=== PATIENT | male | born 1945 | race Caucasian/White ===

== ENCOUNTER → 2023-10-08 07:50 | Outpatient (REF) | payer MEDICARE, OTHER, SELFPAY | LOC: RAD 07:50 | PROVIDERS: ATTENDING PHYSICIAN Specialist; FAMILY PHYSICIAN Family Medicine | DX: M54.16 Radiculopathy, lumbar region (principal) | CPT/HCPCS: 72131 ==

== ENCOUNTER → 2024-01-16 13:59 | Outpatient (REF) | payer MEDICARE, OTHER, SELFPAY ==
[2024-01-16 15:04] LABS: % Basophils 0.5 % (0-2); % Eosinophils 1.9 % (0-6); % Immature Granulocytes 0.4 % (0-0.5); % Monocytes 8.4 % (1.7-9.3); % Neutrophils 58.8 % (42.2-75.2); Absolute Eosinophils 0.1 10^3/uL (0-0.7); Absolute Lymphocytes 2.2 10^3/uL (1.2-3.4); Absolute Monocytes 0.6 10^3/uL (0.1-0.6); Absolute Neutrophils 4.3 10^3/uL (1.4-6.5); Hematocrit 42.2 % (39.0-52.0); Hemoglobin 14.6 g/dL (13.0-18.0); Mean Corp Hgb Conc. 34.6 g/dL (33.0-37.0); Mean Corpuscular Hgb 32.5 pg (27.0-31.0); Mean Platelet Volume 9.9 fL (7.4-10.4); Nucleated Red Blood Cells % 0 % (-); Platelet Count 205 10^3/uL (130-400); Red Blood Cell Count 4.49 10^6/uL (4.70-6.10); Red Cell Dist. Width 12.6 % (11.5-14.5); White Blood Cell Count 7.3 10^3/uL (4.8-10.8)
[2024-01-16 15:30] LABS: ALT (SGPT) 18 U/L (0-50); AST (SGOT) 24 U/L (17-59); Alkaline Phosphatase 111 U/L (38-126); Blood Urea Nitrogen 13 mg/dl (9-20); Calcium 9.6 mg/dl (8.4-10.2); Carbon Dioxide 24 mmol/L (22-30); Chloride 105 mmol/L (98-107); Glucose 139 mg/dl (70-99); Potassium 4.1 mmol/L (3.5-5.1); Sodium 138 mmol/L (135-145); Total Bilirubin 0.7 mg/dl (0.2-1.3); Total Protein 6.1 g/dl (6.3-8.2); eGFR > 60.00
== END ==
LOC: REG 13:59
PROVIDERS: ATTENDING PHYSICIAN Family Medicine
DX: R17 Unspecified jaundice (principal)
CPT/HCPCS: 36415; 80053; 85025

== ENCOUNTER → 2024-02-14 10:09 | Outpatient (REF) | payer MEDICARE, OTHER, SELFPAY ==
[2024-02-14 11:59] LABS: ALT (SGPT) 26 U/L (0-50); AST (SGOT) 27 U/L (17-59); Albumin 4.6 g/dl (3.5-5.0); Alkaline Phosphatase 94 U/L (38-126); Blood Urea Nitrogen 16 mg/dl (9-20); Calcium 9.9 mg/dl (8.4-10.2); Carbon Dioxide 30 mmol/L (22-30); Chloride 104 mmol/L (98-107); Glucose 96 mg/dl (70-99); HDL Cholesterol 67 mg/dl; LDL Cholesterol, Calculated 79 mg/dl; Potassium 4.9 mmol/L (3.5-5.1); Sodium 140 mmol/L (135-145); Total Bilirubin 1.2 mg/dl (0.2-1.3); Total Cholesterol 174 mg/dl (50-199); Total Protein 6.9 g/dl (6.3-8.2); Triglyceride 142 mg/dl (10-149); Very Low Density Lipoprotein 28 mg/dl (0-30); eGFR > 60.00
== END ==
LOC: REG 10:09
PROVIDERS: ATTENDING PHYSICIAN Urology; FAMILY PHYSICIAN Family Medicine; REFERRING PHYSICIAN Internal Medicine Interventional Cardiology
DX: N40.0 Benign prostatic hyperplasia without lower urinary tract symptoms (principal); R97.20 Elevated prostate specific antigen [PSA]; R35.1 Nocturia; E78.2 Mixed hyperlipidemia; E78.5 Hyperlipidemia, unspecified
CPT/HCPCS: 36415; 80053; 80061; 82565; 84153

== ENCOUNTER → 2024-04-17 11:28 | Outpatient (REF) | payer MEDICARE, OTHER, SELFPAY ==
[2024-04-17 13:38] LABS: Blood Urea Nitrogen 14 mg/dl (9-20); Calcium 9.7 mg/dl (8.4-10.2); Carbon Dioxide 28 mmol/L (22-30); Chloride 104 mmol/L (98-107); Glucose 96 mg/dl (70-99); Potassium 4.8 mmol/L (3.5-5.1); Sodium 142 mmol/L (135-145); eGFR > 60.00
== END ==
LOC: REG 11:28
PROVIDERS: ATTENDING PHYSICIAN Urology; FAMILY PHYSICIAN Student in an Organized Health Care Education/Training Program
DX: N40.0 Benign prostatic hyperplasia without lower urinary tract symptoms (principal); R97.20 Elevated prostate specific antigen [PSA]; R35.1 Nocturia
CPT/HCPCS: 36415; 80048; 84153

== ENCOUNTER → 2024-04-18 09:12 | Outpatient (REF) | payer MEDICARE, OTHER, SELFPAY ==
[2024-04-18 12:20] LABS: ALT (SGPT) 21 U/L (0-50); AST (SGOT) 26 U/L (17-59); HDL Cholesterol 53 mg/dl; LDL Cholesterol, Calculated 52 mg/dl; Total Cholesterol 153 mg/dl (50-199); Triglyceride 243 mg/dl (10-149); Very Low Density Lipoprotein 48 mg/dl (0-30)
== END ==
LOC: REG 09:12
PROVIDERS: ATTENDING PHYSICIAN Internal Medicine Interventional Cardiology; FAMILY PHYSICIAN Family Medicine
DX: I25.10 Atherosclerotic heart disease of native coronary artery without angina pectoris (principal); I10 Essential (primary) hypertension; E78.00 Pure hypercholesterolemia, unspecified
CPT/HCPCS: 36415; 80061; 84450; 84460

== ENCOUNTER 2024-04-30 10:24 | Emergency (ER) | payer MEDICARE, OTHER, SELFPAY ==
[2024-04-30 10:30] VITALS: BP 140/81
--- NOTE | 2024-04-30 10:49 | ED.GENMED ---
History of Present Illness
General
Chief Complaint: Back Pain
Source: patient
Exam Limitations: none
Time Seen by Provider: 04/30/24 10:35
Nursing documentation reviewed up to this point in time: agreed with
History of Present Illness
History of Present Illness:
78-year-old male with past medical history of CAD hypertension chronic back issues presenting to the emergency department today with concerns of back pain that been ongoing he had contact his pain management doctor who was on vacation. He
previously had a back injection 1 month ago that had some improvement but is since worn off. He also has a spinal stimulator. He has been taking Tylenol at home without relief.
Past History
Past History
ED Past Medical History: None, CAD, HTN and Other (coronary artery disease, hyperlipidemia, prostatitis, status post appendectomy)
ED Past Surgical History: Appendectomy, Orthopedic and Other (Prostatic biopsy)
Social History
Tobacco: Non-smoker
Personal:
Living: with family
Employment: Retired
Family History
Family History: Diabetes and Hypertension
Review of Systems
Review of Systems
Allergies reviewed?: Yes
All Other Systems: ROS reviewed and negative except as documented in HPI and ROS
Phy Exam
Physical Exam
Physical Exam:
GENERAL: Alert , in no apparent distress
EYE: pupils equal and reactive
NECK: Supple, no significant adenopathy.
ENT: o/p clr, mmm.
CARDIAC: Regular rate and rhythm .
LUNGS: Clear breath sounds bilaterally, no acute respiratory distress, no wheezes/rales/rhonchi
ABDOMEN: Soft, without focal tenderness, no r/g, no cvat
NEUROLOGICAL: Alert and oriented, no focal neuro deficits
SKIN: Warm and dry, skin intact.
MUSCULOSKELETAL: No edema, well perfused.
PSYCH: Normal and appropriate interaction.
Course
Orders/Labs/Results
Orders:
Orders
04/30/24 10:49
Dexamethasone [Decadron] 10 mg PO NOW STA
Diazepam [Valium] 2 mg PO NOW STA
Vital Signs
Initial and Last Documented VS:
Initial Vital Signs
Temp Pulse Resp BP Pulse Ox
98.0 F 52 16 140/81 98
04/30/24 10:30 04/30/24 10:30 04/30/24 10:30 04/30/24 10:30 04/30/24 10:30
Last Documented Vital Signs
Temp Pulse Resp BP Pulse Ox
98.0 F 52 16 140/81 98
04/30/24 10:30 04/30/24 10:30 04/30/24 10:30 04/30/24 10:30 04/30/24 10:30
MDM/Problems Addressed
MDM/Problems Addressed:
78-year-old male presenting to the emergency department with bilateral low back pain no fevers no numbness or weakness no change in bowel or bladder function. No neurologic symptoms. Able to ambulate on exam normal neurologic evaluation on
examination. No saddle anesthesia. She has be consistent with his mechanical back pain. Plan for treatment with steroid as well as muscle relaxer. Patient does claim is very stable in his feet the risk of taking muscle laxer was discussed
thoroughly with the patient who demonstrated understanding and agreement with a small dose trial. Patient was reassessed very stable on his feet well-appearing claims he feels much better after the doses of medication here stable for discharge
return precautions were given.
*Critical Care Note
Total Time (30-74mins, 75-104mins- exclusive of procedures): Not Applicable
ED Attending Note
-
Portions of this chart may have been created with voice recognition software.� Occasional wrong word or��sound alike� substitutions may have occurred due to the inherent limitations of voice recognition software.
Discharge Plan
Departure
Patient Disposition: Home (Routine Discharge)
Date of Disposition: 04/30/24
Time of Disposition: 11:43
Patient with high blood pressure during this ER visit?: No
Condition: Good
Covid-19: Not Applicable
Discharge Problem:
Back pain
Instructions: Low Back Pain (DC)
Prescriptions:
New
prednisone 50 mg tablet
50 mg PO DAILY 3 Days Qty: 3 0RF
diazepam [Valium] 2 mg tablet
2 mg PO BID PRN (Reason: muscle spasm) Qty: 7 0RF
No Action
atorvastatin 40 MG tablet
40 mg PO QPM
aspirin 81 mg Tablet,Delayed Release (Dr/Ec)
81 mg PO QPM
tamsulosin 0.4 mg Capsule
0.4 mg PO HS Qty: 30 1RF
losartan 25 mg Tablet
25 mg PO DAILY Qty: 30 1RF
acetaminophen 325 mg Tablet
650 mg PO Q4HPRN PRN (Reason: mild pain,headache,temp >101F ) Qty: 0 0RF
clopidogrel 75 mg Tablet
75 mg PO DAILY Qty: 30 2RF
metoprolol tartrate 50 mg Tablet
75 mg PO BID Qty: 60 1RF
oxycodone 5 mg Tablet
5 mg PO Q6HPRN PRN (Reason: moderate to severe pain) Qty: 15 0RF
amiodarone [Pacerone] 200 mg tablet
200 mg PO BID Qty: 60 1RF
furosemide [Lasix] 20 mg tablet
20 mg PO DAILY Qty: 5 0RF
potassium chloride [potassium chloride] 10 mEq tablet,ER particles/crystals
10 meq PO DAILY Qty: 5 0RF
trazodone 50 mg tablet
50 mg PO HS Qty: 30 0RF
pantoprazole [Protonix] 40 mg tablet,delayed release (DR/EC)
40 mg PO DAILY Qty: 30 0RF
Referrals:
Samantha Saravia CRNP [Family Provider] -
Activity Restrictions/Additional Instructions:
You came to the emergency department today with concerns of back discomfort. Here you were given medications seem to improve symptoms. Please follow closely with your back doctor. Return to the emergency department for any worsening, new or
concerning symptoms.
Interventions
Interventions:
*Risk Screen - Suicide Last Done: 04/30/24 10:32
*Neglect/Abuse Screening Last Done: 04/30/24 10:32
Discharge Date and Time
Print Language: [place]
[2024-04-30] MEDS: VALIUM 2 MG PO (10:58)
[2024-04-30] MEDS: DECADRON 10 MG PO (10:58)
== END 2024-04-30 11:54 | disposition home or self-care (01) ==
LOC: EMR 10:24
PROVIDERS: EMERGENCY PHYSICIAN Emergency Medicine; FAMILY PHYSICIAN Nurse Practitioner Family
DX: M54.50 Low back pain, unspecified (principal); I25.10 Atherosclerotic heart disease of native coronary artery without angina pectoris; I10 Essential (primary) hypertension
CPT/HCPCS: 99283

== ENCOUNTER → 2024-09-07 12:21 | Outpatient (REF) | payer MEDICARE, OTHER, SELFPAY ==
[2024-09-07 13:55] LABS: Blood Urea Nitrogen 16 mg/dl (9-20); Calcium 9.5 mg/dl (8.4-10.2); Carbon Dioxide 29 mmol/L (22-30); Chloride 103 mmol/L (98-107); Glucose 89 mg/dl (70-99); Potassium 4.6 mmol/L (3.5-5.1); Sodium 139 mmol/L (135-145); eGFR > 60.00
== END ==
LOC: REG 12:21
PROVIDERS: ATTENDING PHYSICIAN Urology; FAMILY PHYSICIAN Family Medicine
DX: N40.0 Benign prostatic hyperplasia without lower urinary tract symptoms (principal); R97.20 Elevated prostate specific antigen [PSA]; R35.1 Nocturia
CPT/HCPCS: 36415; 80048; 84153

== ENCOUNTER → 2024-10-23 10:18 | Outpatient (REF) | payer MEDICARE, OTHER, SELFPAY | LOC: RCS 10:18 | PROVIDERS: ATTENDING PHYSICIAN Internal Medicine Interventional Cardiology; FAMILY PHYSICIAN Family Medicine | DX: I25.10 Atherosclerotic heart disease of native coronary artery without angina pectoris (principal); I25.2 Old myocardial infarction | CPT/HCPCS: 93306 ==

== ENCOUNTER → 2024-11-27 13:26 | Outpatient (REF) | payer MEDICARE, OTHER, SELFPAY ==
[2024-11-27 14:50] LABS: % Basophils 0.2 % (0-2); % Eosinophils 0.1 % (0-6); % Lymphocytes 19.5 % (20.5-51.1); % Monocytes 9.2 % (1.7-9.3); Absolute Immature Granulocytes 0.1 10^3/uL (0-0.05); Absolute Lymphocytes 2.7 10^3/uL (1.2-3.4); Absolute Monocytes 1.3 10^3/uL (0.1-0.6); Absolute Neutrophils 9.5 10^3/uL (1.4-6.5); Hematocrit 47.1 % (39.0-52.0); Hemoglobin 16.4 g/dL (13.0-18.0); Mean Corp Hgb Conc. 34.8 g/dL (33.0-37.0); Mean Corpuscular Hgb 31.8 pg (27.0-31.0); Mean Corpuscular Volume 91.3 fL (80.0-94.0); Mean Platelet Volume 9.6 fL (7.4-10.4); Nucleated Red Blood Cells % 0 % (-); Platelet Count 272 10^3/uL (130-400); Red Blood Cell Count 5.16 10^6/uL (4.70-6.10); Red Cell Dist. Width 12.1 % (11.5-14.5); White Blood Cell Count 13.6 10^3/uL (4.8-10.8)
[2024-11-27 15:27] LABS: ALT (SGPT) 47 U/L (0-50); AST (SGOT) 26 U/L (17-59); Albumin 4.9 g/dl (3.5-5.0); Alkaline Phosphatase 98 U/L (38-126); Blood Urea Nitrogen 20 mg/dl (9-20); Calcium 9.6 mg/dl (8.4-10.2); Carbon Dioxide 26 mmol/L (22-30); Chloride 104 mmol/L (98-107); Glucose 98 mg/dl (70-99); Potassium 4.7 mmol/L (3.5-5.1); Sodium 141 mmol/L (135-145); Total Bilirubin 1.1 mg/dl (0.2-1.3); Uric Acid 4.9 mg/dl (3.5-8.5); eGFR > 60.00
[2024-11-27 15:32] LABS: C-Reactive Protein < 5.00 mg/L (0.0-10.00)
[2024-11-27 15:50] LABS: Vitamin D, 25-OH*** 34.6 ng/mL (30-80)
[2024-11-29 13:40] LABS: Lyme Antibody Screen, EIA Negative (Negative); Rheumatoid Agglutinin Less Than 10 IU (<10 IU)
[2024-11-30 02:15] LABS: ANA, IgG Reflex to HEp-2 None Detected (None Detected)
[2024-11-30 03:00] LABS: CCP Antibody IgG/IgA 8 Units (0-19)
== END ==
LOC: REG 13:26
PROVIDERS: ATTENDING PHYSICIAN Internal Medicine Rheumatology; FAMILY PHYSICIAN Family Medicine
DX: E55.9 Vitamin D deficiency, unspecified (principal); I25.10 Atherosclerotic heart disease of native coronary artery without angina pectoris; M19.042 Primary osteoarthritis, left hand; M19.90 Unspecified osteoarthritis, unspecified site; M67.431 Ganglion, right wrist; Z79.01 Long term (current) use of anticoagulants
CPT/HCPCS: 36415; 80053; 82306; 84550; 85025; 86038; 86140; 86200; 86430; 86618

== ENCOUNTER → 2024-12-05 17:52 | Outpatient (REF) | payer MEDICARE, OTHER, SELFPAY | LOC: MRI 17:52 | PROVIDERS: ATTENDING PHYSICIAN Psychiatry & Neurology Neurology; FAMILY PHYSICIAN Student in an Organized Health Care Education/Training Program | DX: R42 Dizziness and giddiness (principal) | CPT/HCPCS: 70551 ==

== ENCOUNTER → 2024-12-06 10:33 | Outpatient (REF) | payer MEDICARE, OTHER, SELFPAY ==
[2024-12-06 12:22] LABS: Iron 156 ug/dl (49-181)
[2024-12-06 12:33] LABS: Percent Saturation 55 % (20-50); Total Iron Binding Capacity 279 ug/dl (261-462)
[2024-12-06 13:09] LABS: Vitamin D, 25-OH*** 35.2 ng/mL (30-80)
[2024-12-06 13:22] LABS: TSH Reflex To Free T4 1.16 uIU/ml (0.47-4.68)
[2024-12-07 22:58] LABS: Copper, Serum 89.4 ug/dL (70.0-140.0)
[2024-12-08 01:55] LABS: Vitamin D 1,25 Dihydroxy 25.1 pg/mL (19.9-79.3)
== END ==
LOC: REG 10:33
PROVIDERS: ATTENDING PHYSICIAN Psychiatry & Neurology Neurology
DX: G20.A1 Parkinson's disease without dyskinesia, without mention of fluctuations (principal); E61.1 Iron deficiency; E78.5 Hyperlipidemia, unspecified; E55.9 Vitamin D deficiency, unspecified
CPT/HCPCS: 36415; 82306; 82525; 82652; 82728; 83540; 83550; 84425; 84443; 84446

== ENCOUNTER → 2025-01-11 11:30 | Outpatient (REF) | payer MEDICARE, OTHER, SELFPAY | LOC: REG 11:30 | PROVIDERS: ATTENDING PHYSICIAN Internal Medicine Rheumatology; FAMILY PHYSICIAN Family Medicine | DX: M19.042 Primary osteoarthritis, left hand (principal); M19.90 Unspecified osteoarthritis, unspecified site; M67.431 Ganglion, right wrist | CPT/HCPCS: 73110; 73130 ==

== ENCOUNTER 2025-03-14 11:11 | Outpatient (RCR) | payer MEDICARE, OTHER, SELFPAY | END 2025-03-14 23:59 | disposition home or self-care (01) | LOC: RPT 11:11 | PROVIDERS: ATTENDING PHYSICIAN Psychiatry & Neurology Neurology; FAMILY PHYSICIAN Family Medicine | DX: G20.A1 Parkinson's disease without dyskinesia, without mention of fluctuations (principal); Z73.6 Limitation of activities due to disability; R26.89 Other abnormalities of gait and mobility; R53.83 Other fatigue | CPT/HCPCS: 97110; 97112; 97163; 97167; 97530 ==

== ENCOUNTER → 2025-03-28 12:08 | Outpatient (REF) | payer MEDICARE, OTHER, SELFPAY ==
[2025-03-28 13:40] LABS: Blood Urea Nitrogen 12 mg/dl (9-20); Calcium 9.5 mg/dl (8.4-10.2); Carbon Dioxide 28 mmol/L (22-30); Chloride 106 mmol/L (98-107); Glucose 94 mg/dl (70-99); Potassium 4.6 mmol/L (3.5-5.1); Sodium 142 mmol/L (135-145); eGFR > 60.00
[2025-03-28 14:09] LABS: PSA, Total - Diagnostic 11.00 ng/ml (0.0-4.0)
== END ==
LOC: REG 12:08
PROVIDERS: ATTENDING PHYSICIAN Urology; FAMILY PHYSICIAN Family Medicine
DX: R97.20 Elevated prostate specific antigen [PSA] (principal); R35.1 Nocturia; N40.0 Benign prostatic hyperplasia without lower urinary tract symptoms
CPT/HCPCS: 36415; 80048; 84153

== ENCOUNTER 2025-04-11 11:22 | Outpatient (RCR) | payer MEDICARE, OTHER, SELFPAY | END 2025-04-11 23:59 | disposition home or self-care (01) | LOC: RPT 11:22 | PROVIDERS: ATTENDING PHYSICIAN Psychiatry & Neurology Neurology; FAMILY PHYSICIAN Family Medicine | DX: R26.2 Difficulty in walking, not elsewhere classified (principal); Z73.6 Limitation of activities due to disability; G20.A1 Parkinson's disease without dyskinesia, without mention of fluctuations; M54.50 Low back pain, unspecified | CPT/HCPCS: 97110; 97112; 97530 ==

== ENCOUNTER → 2025-05-21 09:26 | Outpatient (REF) | payer MEDICARE, OTHER, SELFPAY ==
[2025-05-21 11:50] LABS: ALT (SGPT) < 10 U/L (0-50); AST (SGOT) 23 U/L (17-59); Albumin 4.2 g/dl (3.5-5.0); Alkaline Phosphatase 100 U/L (38-126); Blood Urea Nitrogen 12 mg/dl (9-20); Calcium 9.7 mg/dl (8.4-10.2); Carbon Dioxide 29 mmol/L (22-30); Chloride 107 mmol/L (98-107); Glucose 97 mg/dl (70-99); HDL Cholesterol 53 mg/dl; LDL Cholesterol, Calculated 46 mg/dl; Potassium 4.7 mmol/L (3.5-5.1); Sodium 141 mmol/L (135-145); Total Protein 6.4 g/dl (6.3-8.2); Very Low Density Lipoprotein 28 mg/dl (0-30); eGFR > 60.00
[2025-05-21 12:13] LABS: PSA, Total - Diagnostic 13.40 ng/ml (0.0-4.0)
== END ==
LOC: REG 09:26
PROVIDERS: ATTENDING PHYSICIAN Internal Medicine Interventional Cardiology; FAMILY PHYSICIAN Family Medicine; OTHER PHYSICIAN Urology
DX: E78.2 Mixed hyperlipidemia (principal); R97.20 Elevated prostate specific antigen [PSA]; R35.1 Nocturia; N40.0 Benign prostatic hyperplasia without lower urinary tract symptoms; Z12.5 Encounter for screening for malignant neoplasm of prostate
CPT/HCPCS: 36415; 80053; 80061; 84153